=== PATIENT | male | born 1995 | race Caucasian/White ===

== ENCOUNTER 2017-02-26 14:45 | Emergency (ER) | payer OTHER ==
[2017-02-26] MEDS ORDERED: IBUP-103 PO (15:46)
[2017-02-26] MEDS ORDERED: AMOX1TAB43 PO (15:46)
[2017-02-26] MEDS ORDERED: PRED50TA PO (15:58)
[2017-02-26 16:09] VITALS: BP 134/80; PULSE 96; TEMP 37.7; O2SAT 100
--- NOTE | 2017-02-26 17:21 | EMERGENCY ROOM VISIT NOTE ---
History First contact with patient: 15:18 Chief Complaint: SORETHROAT Stated Complaint: SEVERE SORE THROAT, EARACHE History of Present Illness The patient is a 21 year old male who presents to the Emergency Room with complaints of sore throat with pain radiating into the right ear. The patient denies any runny nose, congestion or cough. The patient reports that the pain started yesterday. His brother, who is a physician, gave him a prescription for amoxicillin, which she has been taking since yesterday afternoon. He has also taken Advil with moderate relief of his pain. The patient reports pain with swallowing, and rates his discomfort an 8 out of 10. The patient denies any prior history of strep tonsillitis. Review of Systems 10 system review was performed and was negative except for pertinent positives and negatives as indicated in history of present illness Past Medical/Surgical History Medical Problems: (1) No significant past medical history Surgical Problems: (1) No history of previous surgery Family History Unremarkable Social History Smoking Status: Former Smoker Alcohol Use: occasionally Marital Status: single Occupation Status: [employer] student Current/Historical Medications Scheduled Amoxicillin & Pot Clavulanate (Amoxicillin/Potassium Cla), 1 TAB PO BID Ibuprofen Tab (Advil), 200-600 MG PO Q4H Prednisone (Prednisone), 50 MG PO DAILY Physical Exam Vital Signs Date Time Temp Pulse Resp B/P (MAP) Pulse Ox O2 Delivery O2 Flow Rate FiO2 02/26/17 16:09 37.7 96 16 134/80 100 02/26/17 15:06 Room Air 02/26/17 15:04 38.1 106 20 134/87 98 Room Air Physical Exam CONSTITUTIONAL: Healthy and well nourished. Alert and oriented X 3 with positive affect. Patient appears in mild discomfort from pain. HEENT: Normocephalic, atraumatic. Pupils equal, round and reactive. Examination of the right ear shows mild peripheral TM erythema. Bony landmarks and light reflex are present. No air-fluid levels or serous effusion. No facial edema or rhinorrhea. OROPHARYNX: Patient has mild asymmetric right tonsillar hypertrophy with exudates. No erythema on the soft palate. Uvula is midline. Mild posterior pharyngeal erythema is noted. No evidence for Leonard's angina or retropharyngeal abscess. LYMPHATICS: Mild posterior cervical chain adenopathy without anterior involvement. NECK: Full active range of motion without discomfort. RESPIRATORY: Clear to auscultation bilaterally with no wheezing, crackles, rhonchi or stridor. CARDIOVASCULAR: Regular rate and rhythm with no murmurs, rubs or gallops. INTEGUMENTARY: No rash or other significant dermatologic conditions noted. NEUROLOGIC: Facial sensations are intact. Medical Decision & Procedures Laboratory Results Rapid strep was performed and was negative. Strep cultures are pending. ED Course Patient history and physical exam were performed. Nurse's notes were reviewed. Vital signs were reviewed, showing the patient is febrile with a temperature of 38.1C and tachycardia at 106 bpm. O2 saturation is normal. The patient is normotensive. Rapid strep was negative, and cultures are pending. Because the patient has already started amoxicillin antibiotics, I did suggest that he continue. He was provided a sore throat handout. He was instructed to alternate ibuprofen and Tylenol for pain and fever. Return to the emergency department for any progressively worsening tonsillar swelling or worsening fever. The patient was happy with plan of care, voiced understanding of all discharge instructions, and rated his discomfort a 6 out of 10 at the conclusion of my exam. He refused any further analgesics while in the emergency department. Medical Decision Medication Reconcilliation Current Medication List: was personally reviewed by me Blood Pressure Screening Patient's blood pressure: Normal blood pressure Impression Primary Impression: Acute tonsillitis Departure Information Prescriptions Prednisone (Prednisone) 50 Mg Tab 50 MG PO DAILY for 4 Days, #4 TAB Prov: Joe Weber PA 02/26/17 Referrals No Doctor, Assigned (PCP) Patient Instructions My [facility] Problem Qualifiers Primary Impression: Acute tonsillitis Pharyngitis/tonsillitis etiology: unspecified etiology Qualified Codes: J03.90 - Acute tonsillitis, unspecified
--- NOTE | 2017-03-01 13:35 | Pharmacy Progress Note ---
ED Pharmacist Culture FollowUp Date of Service: Mar 01, 2017. Patient already was prescribed amoxicillin the day before by his brother who is a physician. This should cover the group C strep growing from the patient's throat culture. No further action is necessary as discussed with JAIME Weber.
== END 2017-02-26 16:12 | disposition home or self-care (01) ==
LOC: C.EDB 14:47
DX: J03.90 Acute tonsillitis, unspecified (principal); Z87.891 Personal history of nicotine dependence

== ENCOUNTER 2017-08-11 03:07 | Emergency (ER) | payer OTHER ==
[~2017-08-11] VITALS: Ht 182.9 cm; Wt 106.0 kg
[~2017-08-11 03:07] MED LIST: AMOX1TAB43 PO; IBUP-103 PO
[2017-08-11 03:14] VITALS: TEMP 36.4; O2SAT 97; Ht 182.9 cm; Wt 106.0 kg
--- NOTE | 2017-08-11 04:01 | EMERGENCY ROOM VISIT NOTE ---
History Report prepared by Dev: Nikita Mathew Under the Supervision of: Dr. Heidi Gramajo M.D. First contact with patient: 03:18 Chief Complaint: ALCOHOL OVERDOSE Stated Complaint: ETOH Nursing Triage Summary: brought in by friends via private vehicle. 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 No reports of trauma. Per nursing, the patient drank a fifth of vodka. HPI is limited secondary to alcohol intoxication. Source of History: nursing staff History Limited By: intoxication (alcohol) Onset: CUSTOMER SERVICES SUPERVISOR Position: other (general) Quality: other (alcohol intoxication) Timing: other (persistent) Note: Notes hands and feet are swollen and red. Review of Systems ROS is limited secondary to alcohol intoxication. Past Medical & Surgical Medical Problems: (1) No significant past medical history Surgical Problems: (1) No history of previous surgery Family History No pertinent family history Social History Smoking Status: Unknown if Ever Smoked Alcohol Use: heavy Marital Status: single Housing Status: lives with roommate Occupation Status: [employer] student Current/Historical Medications No Active Prescriptions or Reported Meds Allergies Coded Allergies: No Known Allergies (Unverified , 02/26/17) Physical Exam Vital Signs Date Time Temp Pulse Resp B/P (MAP) Pulse Ox O2 Delivery O2 Flow Rate FiO2 08/11/17 07:06 96 18 92/41 95 Room Air 08/11/17 07:02 94 08/11/17 06:07 101 16 112/58 97 Room Air 08/11/17 05:02 92 16 106/54 96 Room Air 08/11/17 04:27 86 16 91/45 96 Room Air 08/11/17 03:21 73 08/11/17 03:14 97 Room Air 08/11/17 03:14 36.4 74 16 111/73 97 Room Air Physical Exam Vital signs reviewed. General: Odor of EtOH in the breath, disheveled 21-year-old male. No signs of trauma. HEENT: Mild scleral injection bilaterally, PERRLA, neck supple, dry mucous membranes. Cardiovascular: Regular rate and rhythm, no extra sounds. Pulmonary: Clear to auscultation bilaterally, normal work of breathing. Abdomen: Soft, nontender, nondistended, positive bowel sounds. Musculoskeletal: Upper and lower extremities atraumatic, no peripheral edema. Erythema to the palms and soles, no evidence of trauma. Skin: Warm, dry, no rash. Atraumatic. Neurologic: Patient is currently nonverbal. Medical Decision & Procedures Laboratory Results Test 08/11/17 03:19 Ethyl Alcohol mg/dL 338.0 mg/dl (0-3) Laboratory results per my review. ED Course 0331: Past medical records reviewed. The patient was evaluated in room A9B. A complete history and physical examination was performed. 0655: I reassessed the patient at this time. He is resting. 0730: The patient was signed out to Dr. Sherman at shift change. Medical Decision Differential diagnosis: Etiologies such as alcohol intoxication, toxicologic, infection, hypoglycemia, electrolyte abnormalities, cardiac sources, intracerebral event, neurologic, as well as others were entertained. This patient was evaluated and appeared to be in no significant distress. Physical examination reveals no significant evidence of trauma. The patient is found to be significantly intoxicated with a blood alcohol of 338. Vital signs remained stable. The patient was monitored with aspiration precautions in place. He was reevaluated on multiple occasions. He was arousable but remained nonverbal at approximately 7 AM. The case has been signed out to Dr. Sherman at the change of shift, pending a more sober state. Medication Reconcilliation Current Medication List: was personally reviewed by me Blood Pressure Screening Patient's blood pressure: Normal blood pressure Impression Primary Impression: Alcohol intoxication Scribe Attestation The scribe's documentation has been prepared under my direction and personally reviewed by me in its entirety. I confirm that the note above accurately reflects all work, treatment, procedures, and medical decision making performed by me. Departure Information Dispostion Still a Patient Prescriptions No Active Prescriptions or Reported Meds Referrals No Doctor, Assigned (PCP) [facility] Forms HOME CARE DOCUMENTATION FORM, IMPORTANT VISIT INFORMATION Patient Instructions [facility]: [employer] Students and Alcohol Related Visits, My [facility] Additional Instructions Diagnosis: Alcohol intoxication Drink plenty of clear liquids, such as water or Gatorade. Tylenol 650 mg every 6 hours as needed for pain. Avoid excessive alcohol consumption. Follow-up with [facility] as directed. Return to emergency for worsening of symptoms or medical concerns.
--- NOTE | 2017-08-11 07:31 | EMERGENCY ROOM VISIT NOTE ---
ED Visit Note First contact with patient: 07:25 The patient was taken in sign out from Dr. Heidi Gramajo at the change of shift. Please see that note for details. The patient was pending alcohol clearance. The patient's intoxication improved. He was awake and alert. He does not remember consuming the vodka. He was counseled. I gave my usual and customary discussion regarding this issue. He was discharged in stable condition in the care of a sober friend.
[2017-08-11 10:48] VITALS: BP 111/63; PULSE 88; O2SAT 97
== END 2017-08-11 10:49 | disposition home or self-care (01) ==
LOC: C.EDA 03:09
DX: F10.929 Alcohol use, unspecified with intoxication, unspecified (principal); Y90.8 Blood alcohol level of 240 mg/100 ml or more